=== PATIENT | male | born 1960 | race Caucasian/White ===

== ENCOUNTER → 2021-06-11 | Outpatient (CLI) | payer BC ==
[2021-06-11 15:00] LABS: Basophils # (A) 0.04 X 10*3/uL (0.00-0.10); Basophils % (A) 0.6 %; Eosinophils % (A) 1.4 %; HCT 50.9 % (39.6-50.0); HGB 16.5 g/dL (13.0-17.0); Immature Grans, Automated 0.4 %; Lymphocytes # (A) 1.61 X 10*3/uL (0.90-5.00); Lymphocytes % (A) 23.1 %; MCHC 32.4 g/dL (32.0-37.0); MCV 92.5 fL (80.0-97.0); Mean Platelet Volume 10.3 fL (9.5-12.2); Monocytes # (A) 0.45 X 10*3/uL (0.20-1.00); Monocytes % (A) 6.5 %; NRBC Per 100 WBC 0 /100 WBCS (0.0-0.0); Neutrophils # (A) 4.73 X 10*3/uL (1.80-7.70); Platelet Count 227 X 10*3/uL (140-440); RDW 12.6 % (11.5-14.5); WBC 6.96 X 10*3/uL (4.50-10.00)
[2021-06-11 15:17] LABS: % Iron Saturation 24.35 (15.00-50.00); ALT 21 U/L (10-49); AST 16 U/L (14-35); African American GFR (CKD) 114.8 (60.0-200.0); Albumin 4.4 g/dL (3.8-4.9); Albumin/Globulin Ratio 1.62 (1.60-3.17); Alkaline Phosphatase 91 U/L (41-126); BUN/Creat Ratio 15.21 Ratio (12.00-20.00); Calcium 9.4 mg/dL (8.7-10.3); Chloride 99 mmol/L (96-109); Chol/HDL Ratio 4.83 Ratio; Globulin 2.7 g/dL (1.6-3.3); Glucose 204 mg/dL (70-110); Iron 80 ug/dL (65-175); LDL Cholesterol,Calculated 93.9 mg/dL (0.0-131.0); Potassium 4.2 mmol/L (3.5-5.5); Sodium 139 mmol/L (135-145); Total Iron Binding Capacity 329 ug/dL (228-460); Total Protein 7.2 g/dL (6.2-8.2)
== END | disposition home or self-care (01) ==
LOC: LABWHC1 09:41
PROVIDERS: ATTEND Nurse Practitioner Adult Health
DX: I10 Essential (primary) hypertension (principal); E11.9 Type 2 diabetes mellitus without complications; E03.9 Hypothyroidism, unspecified; E78.2 Mixed hyperlipidemia
CPT/HCPCS: 36415; 80053; 80061; 82728; 83540; 83550; 84439; 84443; 85025

== ENCOUNTER → 2021-10-08 | Outpatient (CLI) | payer BC ==
[2021-10-08 15:18] LABS: Basophils # (A) 0.04 X 10*3/uL (0.00-0.10); Basophils % (A) 0.5 %; Eosinophils # (A) 0.11 X 10*3/uL (0.04-0.35); Eosinophils % (A) 1.5 %; HCT 50.2 % (39.6-50.0); HGB 16.4 g/dL (13.0-17.0); Immature Grans, Automated 0.5 %; Lymphocytes # (A) 1.53 X 10*3/uL (0.90-5.00); MCH 30.2 pg (27.0-32.0); MCHC 32.7 g/dL (32.0-37.0); MCV 92.4 fL (80.0-97.0); Mean Platelet Volume 9.6 fL (9.5-12.2); Monocytes # (A) 0.44 X 10*3/uL (0.20-1.00); NRBC Per 100 WBC 0 /100 WBCS (0.0-0.0); Neutrophils # (A) 5.12 X 10*3/uL (1.80-7.70); Neutrophils % (A) 70.5 %; Platelet Count 221 X 10*3/uL (140-440); RBC 5.43 X 10*6/uL (4.40-5.60); RDW 12.7 % (11.5-14.5); WBC 7.28 X 10*3/uL (4.50-10.00)
[2021-10-08 16:44] LABS: % Iron Saturation 27.5 (15.00-50.00); African American GFR (CKD) 114.8 (60.0-200.0); Albumin 4.6 g/dL (3.8-4.9); Albumin/Globulin Ratio 1.76 (1.60-3.17); Anion Gap 12.8 mmol/L (10.00-18.00); BUN/Creat Ratio 13.53 Ratio (12.00-20.00); Blood Urea Nitrogen 10.5 mg/dL (9.0-27.0); Calcium 9.6 mg/dL (8.7-10.3); Carbon Dioxide 26.5 mmol/L (20.0-27.5); Globulin 2.6 g/dL (1.6-3.3); Potassium 4.7 mmol/L (3.5-5.5); Total Bilirubin 0.6 mg/dL (0.30-1.20); Total Protein 7.2 g/dL (6.2-8.2)
== END | disposition home or self-care (01) ==
LOC: LABWHC1 09:22
PROVIDERS: ATTEND Internal Medicine
DX: Z12.5 Encounter for screening for malignant neoplasm of prostate (principal); E11.9 Type 2 diabetes mellitus without complications; E03.9 Hypothyroidism, unspecified; K21.9 Gastro-esophageal reflux disease without esophagitis
CPT/HCPCS: 36415; 80053; 82607; 83540; 83550; 85025

== ENCOUNTER → 2022-08-03 | Outpatient (CLI) | payer BC ==
[2022-08-03 15:58] LABS: Basophils # (A) 0.04 X 10*3/uL (0.00-0.10); Basophils % (A) 0.5 %; Eosinophils # (A) 0.19 X 10*3/uL (0.04-0.35); Eosinophils % (A) 2.4 %; Immature Grans, Automated 0.3 %; Lymphocytes # (A) 1.52 X 10*3/uL (0.90-5.00); Lymphocytes % (A) 19.4 %; MCH 30.2 pg (27.0-32.0); MCHC 32.1 g/dL (32.0-37.0); MCV 94.1 fL (80.0-97.0); Mean Platelet Volume 9.6 fL (9.5-12.2); Monocytes # (A) 0.45 X 10*3/uL (0.20-1.00); Monocytes % (A) 5.7 %; NRBC Per 100 WBC 0 /100 WBCS (0.0-0.0); Neutrophils # (A) 5.63 X 10*3/uL (1.80-7.70); Neutrophils % (A) 71.7 %; Platelet Count 205 X 10*3/uL (140-440); RBC 5.63 X 10*6/uL (4.40-5.60); RDW 12.9 % (11.5-14.5); WBC 7.85 X 10*3/uL (4.50-10.00)
[2022-08-03 16:40] LABS: ALT 17 U/L (10-49); AST 14 U/L (14-35); African American GFR (CKD) 112.9 (60.0-200.0); Albumin 4.5 g/dL (3.8-4.9); Albumin/Globulin Ratio 1.95 (1.60-3.17); Alkaline Phosphatase 83 U/L (41-126); BUN/Creat Ratio 18.34 Ratio (12.00-20.00); Blood Urea Nitrogen 14.8 mg/dL (9.0-27.0); Calcium 9.3 mg/dL (8.7-10.3); Carbon Dioxide 25.2 mmol/L (20.0-27.5); Chloride 105 mmol/L (96-109); Chol/HDL Ratio 3.99 Ratio; Globulin 2.3 g/dL (1.6-3.3); Glucose 108 mg/dL (70-110); LDL Cholesterol,Calculated 88.2 mg/dL (0.0-131.0); Magnesium 2.1 mg/dL (1.5-2.4); Non-African American GFR(CKD) 97.4 (60.0-200.0); Potassium 4.7 mmol/L (3.5-5.5); Sodium 143 mmol/L (135-145); Total Protein 6.9 g/dL (6.2-8.2); VLDL Calculation 16.74 mg/dL (5.00-40.00)
[2022-08-04 00:12] LABS: Microalbumin Creatinine Ratio <30 mg/g Creat (0-30); Urine Creatinine 60.9 mg/dL (39.0-259.0)
== END | disposition home or self-care (01) ==
LOC: LABWHC1 09:18
PROVIDERS: ATTEND Internal Medicine Endocrinology, Diabetes & Metabolism
DX: Z11.59 Encounter for screening for other viral diseases (principal); Z12.5 Encounter for screening for malignant neoplasm of prostate; E03.9 Hypothyroidism, unspecified; I10 Essential (primary) hypertension; E11.65 Type 2 diabetes mellitus with hyperglycemia
CPT/HCPCS: 36415; 80053; 80061; 82043; 82570; 82607; 82746; 83036; 83735; 84153; 84439; 84443; 85025; 86803

== ENCOUNTER 2022-09-24 05:52 | Day surgery (SDC) | payer BC ==
[~2022-09-24 05:52] MED LIST: LACTATED RINGERS 1,000 ML IV SCH
[2022-09-24 06:31] VITALS: RESP 16; TEMP 97
[2022-09-24 06:43] LABS: Glucose,Whole Blood 110 mg/dL (70-110)
[2022-09-24] MEDS ORDERED: PROPOFOL 10 MG/ML 20 ML VIAL IV ONE (07:00)
[2022-09-24] MEDS ORDERED: MIDAZOLAM 2 MG/2 ML VIAL ONE (07:00)
[2022-09-24] MEDS ORDERED: LIDOCAINE 2% INJ 20 MG/ML (2 ML VIAL) ONE (07:00)
[2022-09-24] MEDS ORDERED: fentaNYL (PF) 50 MCG/ML 2 ML AMP ONE (07:00)
--- NOTE | 2022-09-24 07:24 | P.PCN ---
Date of Procedure: 09/24/22 Procedure(s) Performed: Brief history: Patient is a pleasant 62-year-old white male scheduled for an elective upper endoscopy as well as colonoscopy as a part of evaluation of long-standing history of GERD and screening for colon cancer. He has family history of colon cancer diagnosed in her mother at age 80. Procedure performed: Esophagogastroduodenoscopy with biopsy Colonoscopy Preoperative diagnosis: GERD Screening for colon cancer and family history of colon cancer Anesthesia: MAC Procedure: After informed consent was obtained from the patient was brought into the endoscopy unit and IV sedation was administered by anesthesia under continuous monitoring. Initially upper endoscopy was done. The Olympus GF 160 video endoscope was inserted inserted into the mouth and esophagus intubated without any difficulty and was gradually advanced into the stomach and duodenum and carefully examined. The bulb and second part of the duodenum appeared normal. The scope was then withdrawn into the stomach adequately insufflated with air and upon careful examination the antrum and body, cardia and fundus appeared normal. There were small gastric polyps noted by the stomach multiple biopsies The scope was then withdrawn into the esophagus. The GE junction was located at 40 cm to the incisors. It appeared regular with no erythema erosions or ulcerations. Rest of the esophagus appeared normal. Patient tolerated the procedure well. At this time the patient continued to remain sedation. Initial digital rectal examination was normal. Olympus CF 160 video colonoscope was then inserted into the rectum and gradually advanced to the cecum moderate difficulty. Careful examination was performed as the scope was gradually being withdrawn. The prep was excellent. The cecum, ascending colon, transverse colon, descending colon, sigmoid colon and rectum appeared normal. Scattered sigmoid diverticulosis. Retroflexion was performed in the rectum and no lesions were noted. Patient tolerated the procedure well. Impression: 1. Upper endoscopy revealed multiple small gastric polyps but no evidence of esophagitis or Mason's esophagus 2. Colonoscopy revealed scattered sigmoid diverticulosis but no evidence of colorectal neoplasia Recommendations: Findings of this examination were discussed with the patient as well as his family. He was advised to follow with the biopsy results. Continue Prilosec 20 mg daily and follow antireflux measures. Recommend repeat screening colonoscopy in 5 years because of the family history of colon cancer.
[2022-09-24 07:43] VITALS: BP 106/68; PULSE 84
== END 2022-09-24 07:59 | disposition home or self-care (01) ==
LOC: ORWHC2ENDO 05:52
PROVIDERS: ATTEND Internal Medicine Gastroenterology
DX: Z12.11 Encounter for screening for malignant neoplasm of colon (principal); K21.9 Gastro-esophageal reflux disease without esophagitis; K31.7 Polyp of stomach and duodenum; K57.30 Diverticulosis of large intestine without perforation or abscess without bleeding; Z80.0 Family history of malignant neoplasm of digestive organs
CPT/HCPCS: 45378; 88305; 43239; J2250; J3010; J2704; J2001

== ENCOUNTER → 2023-03-10 | Outpatient (CLI) | payer BC ==
[2023-03-10 11:28] LABS: Appearance,Urine Clear (Clear); Bilirubin,Urine Negative (Negative); Blood,Urine Negative (Negative); Color,Urine Yellow (Yellow); Ketones,Urine Negative (Negative); Nitrite,Urine Negative (Negative); PH, Urine 5.5; Urobilinogen,Urine 0.2 E.U./DL
[2023-03-10 11:41] LABS: BUN/Creat Ratio 15.75 Ratio (12.00-20.00); Blood Urea Nitrogen 12.6 mg/dL (9.0-27.0); Chloride 101 mmol/L (96-109); Chol/HDL Ratio 4.73 Ratio; Glucose 155 mg/dL (70-110); LDL Cholesterol,Calculated 102.7 mg/dL (0.0-131.0); Potassium 4.5 mmol/L (3.5-5.5); Sodium 139 mmol/L (135-145)
[2023-03-10 11:42] LABS: ALT 30 U/L (10-49); AST 17 U/L (14-35); Albumin 4.5 g/dL (3.8-4.9); Alkaline Phosphatase 79 U/L (41-126); Calcium 9.5 mg/dL (8.7-10.3); Carbon Dioxide 25.9 mmol/L (21.6-31.8); Globulin 2.5 g/dL (1.6-3.3); Total Bilirubin 0.6 mg/dL (0.3-1.2)
== END | disposition home or self-care (01) ==
LOC: LABWHC1 07:12
PROVIDERS: ATTEND Internal Medicine Endocrinology, Diabetes & Metabolism
DX: E11.65 Type 2 diabetes mellitus with hyperglycemia (principal)
CPT/HCPCS: 36415; 80053; 80061; 81003; 83036; 84443

== ENCOUNTER → 2023-06-10 | Outpatient (CLI) | payer BC | END | disposition home or self-care (01) | LOC: LABWHC1 07:50 | PROVIDERS: ATTEND Internal Medicine Endocrinology, Diabetes & Metabolism | DX: Z53.9 Procedure and treatment not carried out, unspecified reason (principal) ==

== ENCOUNTER → 2023-06-10 | Outpatient (CLI) | payer BC ==
[2023-06-10 11:31] LABS: HCT 50.9 % (39.6-50.0); HGB 16.5 g/dL (13.0-17.0); MCH 29.9 pg (27.0-32.0); MCHC 32.4 g/dL (32.0-37.0); MCV 92.4 FL (80.0-97.0); Mean Platelet Volume 9.3 FL (9.5-12.2); NRBC Per 100 WBC 0 X 10*3/uL (0.00-0.01); Platelet Count 216 X 10*3/uL (140-440); RBC 5.51 X 10*6/uL (4.40-5.60); RDW 12.8 % (11.5-14.5); WBC 7.42 X 10*3/uL (4.50-10.00)
[2023-06-10 11:38] LABS: Microalbumin Creatinine Ratio <17 mg/g Cr (0-30); Urine Creatinine 69.5 mg/dL (39.0-259.0)
[2023-06-10 11:55] LABS: ALT 18 U/L (10-49); AST 18 U/L (14-35); Albumin 4.3 g/dL (3.8-4.9); Albumin/Globulin Ratio 1.72 Ratio (1.60-3.17); Alkaline Phosphatase 83 U/L (41-126); BUN/Creat Ratio 12.56 Ratio (12.00-20.00); Blood Urea Nitrogen 11.3 mg/dL (9.0-27.0); Calcium 9.3 mg/dL (8.7-10.3); Carbon Dioxide 25.6 mmol/L (21.6-31.8); Chloride 104 mmol/L (96-109); Chol/HDL Ratio 3.42 Ratio; Globulin 2.5 g/dL (1.6-3.3); Glucose 130 mg/dL (70-110); LDL Cholesterol,Calculated 51.8 mg/dL (0.0-131.0); Potassium 4.6 mmol/L (3.5-5.5); Sodium 140 mmol/L (135-145); Total Bilirubin 0.4 mg/dL (0.3-1.2); Total Protein 6.8 g/dL (6.2-8.2)
== END | disposition home or self-care (01) ==
LOC: LABPAT 07:52
PROVIDERS: ATTEND Internal Medicine
DX: Z01.812 Encounter for preprocedural laboratory examination (principal); R94.39 Abnormal result of other cardiovascular function study
CPT/HCPCS: 80053; 80061; 82043; 82570; 83036; 84443; 85027

== ENCOUNTER 2023-07-22 11:07 | Day surgery (SDC) | payer BC ==
[~2023-07-22 11:07] MED LIST changes: +ALPRAZolam 0.25 MG TAB PO PRN; +ALPRAZolam 0.5 MG TAB PO PRN; +ASPIRIN 325 MG TAB PO ONE; +ATORVASTATIN 80 MG TAB PO ONE; +HEPARIN SODIUM,PORCINE (1 ML) 2,500 UNIT in SODIUM CHLORIDE 0.9% 250 ML IRRIGATION PRN; +HEPARIN SODIUM,PORCINE 10,000 UNIT in SODIUM CHLORIDE 0.9% 1,000 ML IRRIGATION PRN; -LACTATED RINGERS 1,000 ML IV SCH; +NITROGLYCERIN SL TABS 0.4 MG TAB SUBLINGUAL PRN
[2023-07-22] MEDS: SODIUM CHLORIDE 0.9% 1,000 ML in EMPTY BAG 1 BAG IV SCH (11:36)
[2023-07-22 11:37] LABS: Glucose,Whole Blood 251 mg/dL (70-110)
[2023-07-22] MEDS: INSULIN ASPART (NovoLOG) 100 UNIT/ML VIAL SQ SCH (11:38)
[2023-07-22 11:51] LABS: Basophils % (A) 0 %; Eosinophils # (A) 0.2 k/uL (0-0.7); Eosinophils % (A) 1 %; HCT 52.9 % (39.0-53.0); HGB 17.4 gm/dL (13.0-17.5); Lymphocytes # (A) 0.9 k/uL (1.0-4.8); Lymphocytes % (A) 6 %; MCH 31.2 pg (25.0-35.0); MCHC 32.8 g/dL (31.0-37.0); Mean Platelet Volume 7.8; Monocytes # (A) 0.3 k/uL (0-1.0); Monocytes % (A) 2 %; Neutrophils # (A) 12.2 k/uL (1.3-7.7); Neutrophils % (A) 89 %; Platelet Count 251 k/uL (150-450); RBC 5.57 m/uL (4.30-5.90); RDW 13.4 % (11.5-15.5); WBC 13.6 k/uL (3.8-10.6)
[2023-07-22 11:56] LABS: African American GFR (CKD) >90 (>60 ml/min/1.73 sqM); Anion Gap 13 mmol/L; Blood Urea Nitrogen 20 mg/dL (9-20); Calcium 9.7 mg/dL (8.4-10.2); Carbon Dioxide 21 mmol/L (22-30); Chloride 105 mmol/L (98-107); Glucose 272 mg/dL (74-99); Non-African American GFR(CKD) >90 (>60 ml/min/1.73 sqM); Potassium 4.4 mmol/L (3.5-5.1); Sodium 139 mmol/L (137-145)
[2023-07-22 12:15] VITALS: RESP 18; TEMP 98.7
[2023-07-22] MEDS ORDERED: HEPARIN SODIUM 1,000 UN/ML (10ML VL) ONE (12:53)
[2023-07-22] MEDS ORDERED: LIDOCAINE 1% INJ 10MG/ML (20 ML MDV) ONE (12:53)
[2023-07-22] MEDS ORDERED: fentaNYL (PF) 50 MCG/ML 2 ML AMP ONE (12:53)
[2023-07-22] MEDS ORDERED: VERAPAMIL 2.5 MG/ML 2 ML AMP ONE (12:54)
[2023-07-22] MEDS: LIDOCAINE 2% (PF) 20 MG/ML 5 ML VIAL SQ ONE (13:23)
[2023-07-22] MEDS: MIDAZOLAM 2 MG/2 ML VIAL IVP ONE (13:25)
[2023-07-22] MEDS: fentaNYL (PF) 50 MCG/1 ML VIAL IVP ONE (13:26)
[2023-07-22] MEDS: HEPARIN SODIUM 1,000 UN/ML (10ML VL) IVP ONE ×4 (13:29→14:10)
[2023-07-22] MEDS ORDERED: TICAGRELOR 90 MG TAB ONE (13:48)
[2023-07-22] MEDS: TICAGRELOR 90 MG TAB PO ONE (13:50)
[2023-07-22] MEDS: IOPAMIDOL-370 100ML BTL INTRATHECA ONE (14:09)
[2023-07-22] MEDS ORDERED: NON FORMULARY DRUG (Insulin Aspart [Novolog] 100 UNIT/ML Cartridge) SQ PRN (14:18)
[2023-07-22] MEDS ORDERED: ZOLPIDEM 5 MG TAB PO PRN (14:25)
[2023-07-22] MEDS ORDERED: RX INFO: IV CONTRAST WAS GIVEN 1 EACH MISC MISCELLANE PRN (14:25)
[2023-07-22] MEDS ORDERED: ATROPINE SULFATE 0.1 MG/ML 10ML SYRINGE IV PRN (14:25)
[2023-07-22] MEDS ORDERED: MAG HYDROX/AL HYDROX/SIMETH 30 ML CUP PO PRN (14:25)
--- NOTE | 2023-07-22 14:32 | P.PRCINT ---
Percutaneous Coronary Int. - Percutaneous Coronary Intervention Percutaneous Coronary Intervention: PROCEDURES PERFORMED: Left heart catheterization, bilateral coronary angiography, ultrasound guided arterial access, PCI proximal diagonal 2 branch with a 2.0 x 12 mm Sweetwater ELBA, iFR mid LAD, intravascular ultrasound LAD INDICATION: Abnormal stress test, dyspnea near card cessation class III symptoms CONSENT:I have discussed the risks, benefits and alternative therapies for the above-mentioned procedure and for both sedation/analgesia as well as necessary blood product administration, if indicated, as they pertain to this patient. The patient has indicated understanding and acceptance of the risks and procedures discussed. PROCEDURE: After the risks, benefits and alternatives of the above mentioned procedure explained in detail with the patient, informed consent was obtained. Patient was taken to the catheterization lab and prepped and draped in usual fashion. Ultrasound guidance was used to assess for arterial access. 1% lidocaine was used to anesthetize the right radial artery. A 6-Faroese sheath w as placed in the right radial artery using modified Seldinger technique and ultrasound guidance. Left coronary angiography was performed with a 5-Faroese JL 4.0 catheter and right coronary angiography was performed with a 5-Faroese FR5 catheter in various views. A 5-Faroese FR5 catheter was inserted into the left ventricle and pressure measurements were obtained. The decision was made to perform iFR of the mid LAD lesion as well as PCI of the diagonal 2 branch. Heparin was given. A 6-Faroese CLS 3.5 guide was easily engage the left main. A 0.014 pressure wire was advanced without proximal left main and normalized. It was then advanced into the mid LAD approximately 1 cm distal to the mid LAD lesion and iFR was performed and was normal at 0.94. Next the decision was made to perform PCI of the diagonal 2 branch. A 0.014 BMW wire was advanced into the distal diagonal 2 branch. Predilation was performed with a 2.0 x 8 mm balloon. Intravascular ultrasound was performed which showed reference vessel 2.0 mm. A 2.0 x 12 mm Sweet[place] ELBA was placed in the proximal diagonal 2 branch. Final angiograms were performed. Per intervention there was 100% stenosis with XI 0 flow and after intervention there was 0% stenosis with XI 3 flow. The right radial sheath was removed and a TR band was placed with hemostasis achieved. The patient tolerated the procedure well. Patient was transported back to the post catheterization holding area in stable condition. Conscious Sedation: Patient was monitored under the direct supervision of garthelf for conscious sedation using Versed and fentanyl for a total duration of 44 minutes HEMODYNAMICS: Aorta: 110/71 LV: 108/3, LVEDP 8 SELECTIVE CORONARY ARTERIOGRAPHY: LEFT MAIN: The left main is a large caliber vessel which biifurcates into the LAD and circumflex. There is no significant stenosis. LEFT ANTERIOR DESCENDING CORONARY ARTERY: LAD is a large caliber vessel which wraps around to the apex. There is a high diagonal branch (nearly ramus) which is moderate caliber without significant stenosis. There is a mid LAD 50-60% stenosis at the bifurcation of a small to moderate caliber Septal branch. Otherwise The distal LAD just past the diagonal 2 branch has diffuse 50% stenosis. The diagonal 2 branch is small caliber with a 100% stenosis with left to left collaterals. LEFT CIRCUMFLEX CORONARY ARTERY: Left circumflex is a moderate caliber vessel with Mild luminal irregularities. RIGHT CORONARY ARTERY: The right coronary artery is a large caliber vessel which gives off a PDA and PLV branch and is the dominant vessel. There is a mid RCA 30% stenosis and otherwise appears normal FINAL IMPRESSION: 1. CAD as described above including 50-60% mid LAD, 100% diagonal 2, 30% RCA stenosis 2. Normal left sided filling pressures 3. Status post PCI proximal diagonal 2 branch with a 2.0 x 12 mm Sweet[place] ELBA 4. iFR mid LAD normal PLAN: 1. Aggressive risk factor modification per most recent ACC/AHA guidelines. 2. Continue dual antiplatelets with aspirin and Brillinta for 6 months
[2023-07-22] MEDS: SODIUM CHLORIDE 0.9% 1,000 ML IV ONE (16:30)
[2023-07-22] MEDS ORDERED: METOPROLOL SUCCINATE (ER) 25 MG TAB.ER.24H PO SCH (17:00)
[2023-07-22] MEDS ORDERED: EZETIMIBE 10 MG TAB PO SCH (17:00)
[2023-07-22] MEDS ORDERED: ERGOCALCIFEROL 1,250 MCG (50,000 IU) CAPSULE PO SCH (17:30)
[2023-07-22] MEDS ORDERED: NON FORMULARY DRUG (Levothyroxine Sodium [Synthroid] 150 MCG Tablet) PO SCH (17:30)
[2023-07-22] MEDS ORDERED: lisinopriL 5 MG TAB PO SCH (17:30)
[2023-07-22] MEDS ORDERED: NON FORMULARY DRUG (Omeprazole [Omeprazole] 20 MG Capsule.Dr) PO SCH (17:30)
[2023-07-22 18:12] VITALS: BP 112/64; PULSE 95
[2023-07-22] MEDS ORDERED: FERROUS SULFATE 325 MG TAB PO SCH (18:30)
[2023-07-22] MEDS ORDERED: NON FORMULARY DRUG (Insulin Glargine 100 UNIT/ML Vial) SQ SCH (19:00)
[2023-07-22] MEDS ORDERED: TICAGRELOR 90 MG TAB PO SCH (21:00)
[2023-07-22] MEDS ORDERED: ATORVASTATIN 20 MG TAB PO SCH (21:00)
[2023-07-23] MEDS ORDERED: ASPIRIN 81 MG PO SCH (09:00)
[2023-07-23] MEDS ORDERED: DOCUSATE 100 MG CAP PO SCH (09:00)
[2023-07-23] MEDS ORDERED: NON FORMULARY DRUG (Aspirin [Adult Low Dose Aspirin Ec] 81 MG Tablet) PO SCH (09:00)
[2023-07-26] MEDS ORDERED: NON FORMULARY DRUG (Semaglutide [Ozempic] 0.25 MG/0.368 ML Pen.Injctr) SQ SCH (14:18)
== END 2023-07-22 17:57 | disposition home or self-care (01) ==
LOC: CATHCVL 11:07
PROVIDERS: ATTEND Internal Medicine
DX: I25.10 Atherosclerotic heart disease of native coronary artery without angina pectoris (principal); Z95.5 Presence of coronary angioplasty implant and graft; I10 Essential (primary) hypertension; E11.9 Type 2 diabetes mellitus without complications; E78.5 Hyperlipidemia, unspecified; Z82.49 Family history of ischemic heart disease and other diseases of the circulatory system; Z79.84 Long term (current) use of oral hypoglycemic drugs; Z79.4 Long term (current) use of insulin; Z88.0 Allergy status to penicillin; Z91.041 Radiographic dye allergy status
CPT/HCPCS: 92978; 93458; 93799; 76937; 80048; 85025; C9600; C1769 ×3; C1887; C1894; C1725; C1753; C1874; J2250; J1644; Q9967; J2001; J3010

== ENCOUNTER 2024-06-11 10:03 | Emergency (ER) | payer BC ==
[2024-06-11 10:23] VITALS: TEMP 98.7
--- NOTE | 2024-06-11 10:40 | XR ---
EXAMINATION TYPE: XR chest 2V DATE OF EXAM: 06/11/2024 10:35 AM COMPARISON: None. CLINICAL INDICATION: Male, 63 years old with history of cough/congestion: Shortness of breath TECHNIQUE: XR chest 2V views of the chest are obtained. FINDINGS: Scattered senescent parenchymal changes noted. Hyperinflation compatible with COPD. No evidence for infiltrate. No evidence for atelectasis. Heart size is stable. Mediastinal structures are stable and grossly unremarkable. No evidence for hilar prominence. Degenerative changes dorsal spine. IMPRESSION: 1. No evidence for acute pulmonary disease. [facility], , 06/11/2024 10:38 AM
[2024-06-11 11:16] LABS: Influenza A Detected (Not Detectd); Influenza B Not Detected (Not Detectd); RSV Not Detected (Not Detectd)
--- NOTE | 2024-06-11 11:51 | ED ---
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 He states he has minimal bribes of cough mild nasal congestion sore throat. Patient has not taken recent antipyretics denies any chest pain denies localized abdominal pain. - Related Data Home Medications Medication Instructions Recorded Confirmed Atorvastatin [Lipitor] 40 mg PO HS 09/23/15 07/20/23 Docusate [Colace] 100 mg PO DAILY 09/23/15 07/20/23 Insulin Glargine (Lantus) [Lantus 80 unit SQ 1900 09/23/15 07/22/23 Vial] Levothyroxine Sodium [Synthroid] 175 mcg PO AC-SUPPER 09/23/15 07/20/23 Omeprazole 20 mg PO AC-SUPPER 09/23/15 07/20/23 metFORMIN HCL [Glucophage] 1,000 mg PO BID 09/23/15 07/22/23 Empagliflozin [Jardiance] 25 mg PO AC-SUPPER 09/22/22 07/20/23 Ergocalciferol [Vitamin D2 (1250 1 tab PO AC-SUPPER 09/22/22 07/20/23 Mcg = 23110 Iu)] Ferrous Sulfate [Iron (65 MG 325 mg PO PC-SUPPER 09/22/22 07/20/23 Elemental)] Insulin Aspart [NovoLOG] 1 dose SQ TID-W/MEALS PRN 09/22/22 07/20/23 lisinopriL [Zestril] 5 mg PO AC-SUPPER 09/22/22 07/20/23 Aspirin [Adult Low Dose Aspirin EC] 81 mg PO DAILY 07/20/23 07/22/23 Ezetimibe [Zetia] 10 mg PO 169907/20/23 07/20/23 Metoprolol Succinate (ER) [Toprol 25 mg PO 0 07/20/23 07/20/23 XL] Semaglutide [Ozempic] 0.25 mg SQ TU 07/20/23 07/22/23 Previous Rx's Medication Instructions Recorded Nitroglycerin Sl Tabs [Nitrostat] 0.4 mg SUBLINGUAL Q5M PRN #25 tab 07/22/23 Ticagrelor [Brilinta] 90 mg PO BID #180 tab 07/22/23 Allergies Allergy/AdvReac Type Severity Reaction Status Date / Time iodine Allergy Swelling Verified 06/11/24 10:23 Penicillins Allergy Rash/Hives Verified 06/11/24 10:23 Review of Systems ROS Statement: Those systems with pertinent positive or pertinent negative responses have been documented in the HPI. ROS Other: All systems not noted in ROS Statement are negative. Past Medical History Past Medical History: Diabetes Mellitus, Deep Vein Thrombosis (DVT), GERD/Reflux, Hyperlipidemia, Osteoarthritis (OA), Thyroid Disorder Additional Past Medical History / Comment(s): IDDM type II, R leg DVT, hypothyroid History of Any Multi-Drug Resistant Organisms: None Reported Past Surgical History: Heart Catheterization With Stent, Hernia Repair, Tonsillectomy Additional Past Surgical History / Comment(s): COLONOSCOPY Past Anesthesia/Blood Transfusion Reactions: No Reported Reaction Additional Past Anesthesia/Blood Transfusion Reaction / Comment(s): Pt unsure if ever recieved blood. Past Psychological History: No Psychological Hx Reported Smoking Status: Never smoker Past Alcohol Use History: None Reported Past Drug Use History: None Reported - Past Family History Father Family Medical History: Cancer Additional Family Medical History / Comment(s): COLON CANCER General Exam Limitations: no limitations General appearance: alert, in no apparent distress Head exam: Present: atraumatic, normocephalic, normal inspection Eye exam: Present: normal appearance, PERRL, EOMI. Absent: scleral icterus, conjunctival injection, periorbital swelling ENT exam: Present: normal exam, normal oropharynx, mucous membranes moist Neck exam: Present: normal inspection, full ROM. Absent: tenderness, meningismus, lymphadenopathy Respiratory exam: Present: normal lung sounds bilaterally. Absent: respiratory distress, wheezes, rales, rhonchi, stridor Cardiovascular Exam: Present: regular rate, normal rhythm, normal heart sounds. Absent: systolic murmur, diastolic murmur, rubs, gallop, clicks GI/Abdominal exam: Present: soft, normal bowel sounds. Absent: distended, tenderness, guarding, rebound, rigid Neurological exam: Present: alert, oriented X3, CN II-XII intact, reflexes normal. Absent: motor sensory deficit Skin exam: Present: warm, dry, intact, normal color. Absent: rash Course Vital Signs 06/11/24 10:20 Temperature 98.7 F Pulse Rate 90 Respiratory 20 Rate Blood Pressure 117/75 O2 Sat by Pulse 95 Oximetry Medical Decision Making - Medical Decision Making Was pt. sent in by a medical professional or institution ([facility], [employer], urgent care, hospital, or shelter...) When possible be specific @ -No Did you speak to anyone other than the patient for history (EMS, parent, family, police, friend...)? What history was obtained from this source @ -No Did you review nursing and triage notes (agree or disagree)? Why? @ -I reviewed and agree with nursing and triage notes Were old charts reviewed (outside hosp., previous admission, EMS record, old EK G, old radiological studies, urgent care reports/EKG's, shelter records)? Report findings @ -No old charts were reviewed Differential Diagnosis (chest pain, altered mental status, abdominal pain women, abdominal pain men, vaginal bleeding, weakness, fever, dyspnea, syncope, headache, dizziness, GI bleed, back pain, seizure, CVA, palpatations, mental health, musculoskeletal)? @ -COVID 19, RSV, influenza, pneumonia, acute bronchitis, URI, this list is not all inclusive EKG interpreted by me (3pts min.). @ -None X-rays interpreted by me (1pt min.). @ -Chest ray shows no acute cardiopulmonary process. CT interpreted by me (1pt min.). @ -None done U/S interpreted by me (1pt. min.). @ -None done What testing was considered but not performed or refused? (CT, X-rays, U/S, labs)? Why? @ -None What meds were considered but not given or refused? Why? @ -None Did you discuss the management of the patient with other professionals (professionals i.e. [facility]ultz, SOLAR DESIGNER, lab, RT, psych nurse, geriatric social work professor, office executive, teacher, regulatory compliance officer, egg caser)? Give summary @ -No Was smoking cessation discussed for >3mins.? @ -No Was critical care preformed (if so, how long)? @ -No Were there social determinants of health that impacted care today? How? (Homelessness, low income, unemployed, alcoholism, drug addiction, transportation, low edu. Level, literacy, decrease access to med. care, shelter, rehab)? @ -No Was there de-escalation of care discussed even if they declined (Discuss DNR or withdrawal of care, Hospice)? DNR status @ -No What co-morbidities impacted this encounter? (DM, HTN, Smoking, COPD, CAD, Cancer, CVA, ARF, Chemo, Hep., AIDS, mental health diagnosis, sleep apnea, morbid obesity)? @ -None Was patient admitted / discharged? Hospital course, mention meds given and route, prescriptions, significant lab abnormalities, going to OR and other pertinent info. @ -Discharge patient is influenza A positive patient discharged in stable condition symptoms been present for greater than 4 days. Undiagnosed new problem with uncertain prognosis? @ -No Drug Therapy requiring intensive monitoring for toxicity (Heparin, Nitro, Insulin, Cardizem)? @ -No Were any procedures done? @ -No Diagnosis/symptom? @ -Influenza A Acute, or Chronic, or Acute on Chronic? @ -Acute Uncomplicated (without systemic symptoms) or Complicated (systemic symptoms)? @ -Uncomplicated Side effects of treatment? @ -No Exacerbation, Progression, or Severe Exacerbation? @ -No Poses a threat to life or bodily function? How? (Chest pain, USA, MD, pneumonia, PE, COPD, DKA, ARF, appy, cholecystitis, CVA, Diverticulitis, Homicidal, Suicidal, threat to staff... and all critical care pts) @ -No - Lab Data Lab Results 06/11/24 Range/Units 10:26 Influenza Type A (PCR) Detected A (Not Detectd) Influenza Type B (PCR) Not Detected (Not Detectd) RSV (PCR) Not Detected (Not Detectd) SARS-CoV-2 (PCR) Not Detected (Not Detectd) Disposition Clinical Impression: Influenza A Disposition: HOME SELF-CARE Condition: Stable Instructions (If sedation given, give patient instructions): Influenza (ED) Additional Instructions: Please return to the Emergency Department if symptoms worsen or any other co ncerns. Is patient prescribed a controlled substance at d/c from ED?: No Referrals: Thaddeus Roberts DO [Primary Care Provider] - 1-2 days Time of Disposition: 11:51
[2024-06-11 12:22] VITALS: BP 112/70; PULSE 89; RESP 18
== END 2024-06-11 12:20 | disposition home or self-care (01) ==
LOC: EC 10:03
DX: J10.1 Influenza due to other identified influenza virus with other respiratory manifestations (principal); Z91.041 Radiographic dye allergy status; Z88.0 Allergy status to penicillin
CPT/HCPCS: 71046; 87636; 99285